=== PATIENT | male | born 1965 | race Caucasian/White ===

== ENCOUNTER 2017-08-24 13:46 | Emergency (ER) | payer MEDICAID, OTHER ==
[~2017-08-24] VITALS: Ht 175.3 cm; Wt 86.2 kg
[2017-08-24 14:26] VITALS: BP 134/90
[2017-08-24] MEDS ORDERED: AZITHROMYCIN 250 MG TAB PO ONE ×2 (15:00)
== END 2017-08-24 15:08 | disposition home or self-care (01) ==
LOC: ER 13:46
DX: A64 Unspecified sexually transmitted disease (principal); Z88.0 Allergy status to penicillin

== ENCOUNTER 2019-08-22 12:17 | Emergency (ER) | payer MEDICAID ==
[~2019-08-22] VITALS: Ht 175.3 cm; Wt 86.2 kg
[2019-08-22 16:33] VITALS: BP 121/81
== END 2019-08-22 16:34 | disposition home or self-care (01) ==
LOC: ER 12:29
DX: I83.92 Asymptomatic varicose veins of left lower extremity (principal); M71.22 Synovial cyst of popliteal space [Baker], left knee
CPT/HCPCS: 93971

== ENCOUNTER 2023-07-21 14:42 | Emergency (ER) | payer MEDICAID ==
[~2023-07-21] VITALS: Ht 175.3 cm; Wt 91.7 kg
[2023-07-21 15:33] VITALS: BP 116/91; PULSE 20; RESP 20; TEMP 97; O2SAT 96
== END 2023-07-21 15:47 | disposition home or self-care (01) ==
LOC: ER 14:42
DX: L02.511 Cutaneous abscess of right hand (principal); F17.210 Nicotine dependence, cigarettes, uncomplicated; F15.90 Other stimulant use, unspecified, uncomplicated; Z48.01 Encounter for change or removal of surgical wound dressing; Z48.00 Encounter for change or removal of nonsurgical wound dressing; Z88.0 Allergy status to penicillin